=== PATIENT | female | born 1990 | race African-American/Black ===

== ENCOUNTER 2021-10-12 22:38 | Emergency (ER) | payer MEDICAID ==
[~2021-10-12] VITALS: Ht 165.1 cm; Wt 78.0 kg
[2021-10-12 22:48] VITALS: BP 137/73
[2021-10-12] MEDS ORDERED: CEFTRIAXONE SODIUM 500 MG/VIAL IM ONE (23:30)
[2021-10-12] MEDS ORDERED: PENICILLIN G BENZATHINE 1,200,000 UNITS/2ML SYR IM ONE (23:30)
[2021-10-12] MEDS ORDERED: LIDOCAINE HCL 1% 20ML VIAL (Pyxis) INJ INFIL ONE (23:30)
[2021-10-13 00:06] LABS: CLARITY URINE CLOUDY (CLEAR); COLOR URINE DARK YELLOW (YELLOW); KETONES URINE 1+ (NEGATIVE); LEUKOCYTE ESTERASE URINE TRACE (NEGATIVE); NITRITE URINE NEGATIVE (NEGATIVE); OCCULT BLOOD URINE NEGATIVE (NEGATIVE); PROTEIN URINE 1+ (NEGATIVE); SPECIFIC GRAVITY URINE 1.039 (1.005-1.030)
[2021-10-13] MEDS ORDERED: DOXY-326 PO (00:38)
[2021-10-14 05:10] LABS: HIV SCREEN 4G Non Reactive (Non Reactive)
== END 2021-10-13 01:55 | disposition home or self-care (01) ==
LOC: ER 22:38
DX: Z20.2 Contact with and (suspected) exposure to infections with a predominantly sexual mode of transmission (principal)
CPT/HCPCS: 81003; 81025; 86592; 87389; 87491; 87591; 96372; 99284; J0561; J0696; J3490